=== PATIENT | female | born 1990 | race Caucasian/White ===

== ENCOUNTER 2016-09-25 10:35 | Emergency (ER) | payer BC, OTHER ==
[~2016-09-25] VITALS: Ht 160 cm; Wt 65.0 kg
[2016-09-25 10:38] VITALS: Ht 160 cm; Wt 65.0 kg
[2016-09-25] MEDS ORDERED: FAMOTIDINE 20 MG TAB PO STA (13:03)
[2016-09-25 13:30] LABS: URINE BLOOD (Dip) POC 3+ (NEGATIVE)
[2016-09-25] MEDS ORDERED: LIDOCAINE/MYLANTA 40 ML BTL PO ONE (13:30)
--- NOTE | 2016-09-25 14:03 | RADRPT ---
PROCEDURE: US Abdomen. CLINICAL INDICATION: abdominal pain TECHNIQUE: Multiple real-time images were acquired of the patient's right upper quadrant abdomen a nd retroperitoneum utilizing a high resolution transducer. COMPARISON: None FINDINGS: The liver demonstrates normal echogenicity. The liver is normal in size and no focal solid lesions are seen. The liver measures 13.5 cm in length. The portal vein is patent with normal direction of f low. No intrahepatic biliary dilatation is seen. No gallstones are identified within the gallbladder. There is no pericholecystic fluid or gallbladd er wall thickening. The common bile duct measures 3 mm in maximal dimension. The visualized portions of the pancreas are unremarkable. The tail of the pancreas is not seen. No free fluid is identified. The right kidney is normal in size, and demonstrate normal echogenicity and cortical thickness. The right kidney measures 8.6 cm in long dimension. There is no evidence of hydronephrosis. There are no kidney stones. RPTAT: AA IMPRESSION: Unremarkable right upper quadrant abdominal ultrasound. .Ritchie Clark MD, Date Time Electronically viewed and signed by .Ritchie Clark MD, MD on 09/25/2016 14:02 .S/
--- NOTE | 2016-09-25 14:08 | ERD ---
ER Documentation Chief Complaint Date/Time DATE: 09/25/16 TIME: 14:04 Chief Complaint MID ABDOMINAL PAIN X 2 WEEKS WITH NAUSEA HPI This is a 26-year-old female presenting to the emergency department for mid epigastric abdominal pain with nausea 2 weeks. Patient states pain feels like a pressure and also reports acid reflux that has worsened. Patient reports pain is worse after eating and has had a decreased appetite because of it. Patient also reports a dry nonproductive cough. No wheezing or chest pain. No fevers or chills. Pain is nonradiating. No lower abdominal pain. No dysuria or hematuria. Patient states she has not tried any medications for this. Last menstrual period started yesterday. ROS All systems reviewed and are negative except as per history of present illness. Medications Home Meds Active Scripts Famotidine* (Pepcid*) 20 Mg Tablet, 20 MG PO QAM for 15 Days, #15 TAB Prov:SHAHEEN SALOMON Timi PRECIADO 09/25/16 Allergies Allergies: Coded Allergies: No Known Drug Allergy (Verified Allergy, Mild, 07/11/14) PMhx/Soc History of Surgery: No Anesthesia Reaction: No Hx Neurological Disorder: No Hx Respiratory Disorders: No Hx Cardiac Disorders: Yes (HYPERLIPIDS) Hx Psychiatric Problems: No Hx Miscellaneous Medical Probl: No Hx Alcohol Use: Yes (SOCIALLY) Hx Substance Use: No Hx Tobacco Use: No Smoking Status: Never smoker Physical Exam Vitals Vital Signs Date Time Temp Pulse Resp B/P Pulse Ox O2 Delivery O2 Flow Rate FiO2 09/25/16 10:38 98.4 110 18 129/69 99 Physical Exam Const: Alert, [id number]. . Head: Atraumatic Eyes: Normal Conjunctiva ENT: Normal External Ears, Nose and Mouth.no erythema or exudate posterior pharynx. TMs normal bilaterally. Neck: Full range of motion..~ No meningismus. Resp: Clear to auscultation bilaterally No wheezing, rhonchi or crackles Cardio: Regular rate and rhythm, no murmurs Abd: Soft, non tender, non distended. Normal bowel sounds Skin: No petechiae or rashes Back: No midline or flank tenderness Ext: No cyanosis, or edema Neur: Awake and alert Psych: Normal Mood and Affect Result Diagram: 09/25/16 1420 09/25/16 1420 Results 24 hrs Laboratory Tests Test 09/25/16 13:31 09/25/16 14:20 Bedside Urine Blood 3+ Bedside Urine Glucose (UA) Negative Bedside Urine Ketones (LAB) 3+ Bedside Urine Leukocyte Esterase (L Negative Bedside Urine Nitrite (LAB) Negative Bedside Urine Protein (LAB) 1+ Bedside Urine pH (LAB) 6.0 Alanine Aminotransferase (ALT/SGPT) 35IU/L Albumin 4.6g/dl Albumin/Globulin Ratio 1.43 Alkaline Phosphatase 103IU/L Anion Gap 19 Aspartate Amino Transf (AST/SGOT) 26IU/L Basophils # 0.110^3/ul Basophils % 0.5% Blood Urea Nitrogen 11mg/dl Calcium Level 9.3mg/dl Carbon Dioxide Level 22mmol/L Chloride Level 106mmol/L Creatinine 0.59mg/dl Direct Bilirubin 0.00mg/dl Eosinophils # 0.110^3/ul Eosinophils % 1.3% Globulin 3.20g/dl Glucose Level 107mg/dl Hematocrit 42.8% Hemoglobin 14.6g/dl Indirect Bilirubin 0.4mg/dl Lymphocytes # 1.810^3/ul Lymphocytes % 18.3% Mean Corpuscular Hemoglobin 30.8pg Mean Corpuscular Hemoglobin Concent 34.2g/dl Mean Corpuscular Volume 90.1fl Mean Platelet Volume 8.8fl Monocytes # 0.410^3/ul Monocytes % 4.6% Neutrophils # 7.410^3/ul Neutrophils % 75.3% Nucleated Red Blood Cells # 0.010^3/ul Nucleated Red Blood Cells % 0.0/100WBC Platelet Count 67937^3/UL Potassium Level 3.2mmol/L Red Blood Count 4.7510^6/ul Red Cell Distribution Width 12.8% Sodium Level 144mmol/L Total Bilirubin 0.4mg/dl Total Protein 7.8g/dl White Blood Count 9.810^3/ul Current Medications Medications (Trade) Dose Ordered Sig/Celia Route PRN Reason Start Time Stop Time Status Last Admin Dose Admin Famotidine (Pepcid) 20 mg ONCE STAT PO 09/25/16 13:03 09/25/16 13:06 DC 09/25/16 13:42 Miscellaneous Medication (Gi Cocktail (2)) 40 ml ONCE ONCE PO 09/25/16 13:30 09/25/16 13:31 DC 09/25/16 13:42 Procedures/MDM ED COURSE: The patient was stable throughout ED course. I kept the patient and/or family informed of laboratory and diagnostic imaging results throughout the ED course. Pepcid and GI cocktail given Laboratory CBC is within normal limit CMP is within normal limits Urine dip 3+ blood, 3+ ketones and 1+ protein. Patient is on her menstrual period. Urine negative Imaging Gallbladder ultrasound Patient: STEPH CANNON : 1990 Age: 26 Sex: F [id number] DOS: 09/25/16 1303 Ordering MD: SHAHEEN SALOMON NP Location: [facility] Room/Bed: PROCEDURE: US Abdomen. CLINICAL INDICATION: abdominal pain TECHNIQUE: Multiple real-time images were acquired of the patient's right upper quadrant abdomen and retroperitoneum utilizing a high resolution transducer. COMPARISON: None FINDINGS: The liver demonstrates normal echogenicity. The liver is normal in size and no focal solid lesions are seen. The liver measures 13.5 cm in length. The portal vein is patent with normal direction of flow. No intrahepatic biliary dilatation is seen. No gallstones are identified within the gallbladder. There is no pericholecystic fluid or gallbladder wall thickening. The common bile duct measures 3 mm in maximal dimension. The visualized portions of the pancreas are unremarkable. The tail of the pancreas is not seen. No free fluid is identified. The right kidney is normal in size, and demonstrate normal echogenicity and cortical thickness. The right kidney measures 8.6 cm in long dimension. There is no evidence of hydronephrosis. There are no kidney stones. RPTAT: AA IMPRESSION: Unremarkable right upper quadrant abdominal ultrasound. MDM: 26-year-old female presents emergency department for mid epigastric abdominal pain with nausea 2 weeks. Patient given GI cocktail and Pepcid while in the ED. Labs are unremarkable. Urine is negative for infection. Gallbladder ultrasound reviewed by radiologist as unremarkable. Patient states nausea and pain have greatly improved. Patient now denies any nausea or pain. Denies chest pain, heart palpitations. No fevers or chills. Remains hemodynamically stable. patient is calm and comfortable throughout ED visit. Remains stable. Low suspicion for cholecystitis, choledocholithiasis, abdominal aortic aneurysm , and diverticulitis. Differential diagnosis includes but not limited to GERD, gastritis, peptic ulcer disease and cholelithiasis Patient is appropriate for outpatient management and will be given prescription for Pepcid instructed patient to follow up with primary care provider in the next 24-48 hours for reassessment and additional management.. Return to ED for any high fever, chest pain, difficulty breathing, shortness breath, wheezing, vomiting, diarrhea, abdominal pain or any new or worsening symptoms. Patient verbalizes understanding. All questions answered at discharge. Departure Diagnosis: Primary Impression: Abdominal pain Abdominal location: epigastric Qualified Code: R10.13 - Epigastric pain Condition: Stable SHAHEEN SALOMON NP Sep 25, 2016 14:08
[2016-09-25 14:40] LABS: BASOPHIL # 0.1 10^3/ul (0.0-0.1); BASOPHILS % 0.5 % (0.0-2.0); EOSINOPHILS # 0.1 10^3/ul (0.0-0.5); EOSINOPHILS % 1.3 % (0.0-7.0); HEMATOCRIT 42.8 % (37.0-47.0); HEMOGLOBIN 14.6 g/dl (12.0-16.0); LYMPHOCYTES # 1.8 10^3/ul (0.8-2.9); LYMPHOCYTES % 18.3 % (15.0-51.0); MEAN CORPUSCULAR HEMOGLOBIN 30.8 pg (29.0-33.0); MEAN CORPUSCULAR HGB CONC 34.2 g/dl (32.0-37.0); MEAN CORPUSCULAR VOLUME 90.1 fl (82.0-101.0); MEAN PLATELET VOLUME 8.8 fl (7.4-10.4); MONOCYTE # 0.4 10^3/ul (0.3-0.9); MONOCYTES % 4.6 % (0.0-11.0); NEUTROPHIL # 7.4 10^3/ul (1.6-7.5); NEUTROPHILS % 75.3 % (39.0-77.0); PLATELET COUNT 317 10^3/UL (140-440); RED BLOOD COUNT 4.75 10^6/ul (4.20-5.40); RED CELL DISTRIBUTION WIDTH 12.8 % (11.5-14.5); UNCORRECTED WBC 9.8 10^3/ul (4.8-10.8); WHITE BLOOD COUNT 9.8 10^3/ul (4.8-10.8)
[2016-09-25 14:49] LABS: ALBUMIN 4.6 g/dl (3.3-4.9); POTASSIUM 3.2 mmol/L (3.5-5.1)
[2016-09-25] MEDS ORDERED: FAMO-18 PO (14:49)
[2016-09-25 14:51] LABS: BILIRUBIN,INDIRECT 0.4 mg/dl (0-1.1); BILIRUBIN,TOTAL 0.4 mg/dl (0.2-1.3); CREATININE 0.59 mg/dl (0.44-1.00)
[2016-09-25 14:52] LABS: ALBUMIN/GLOBULIN RATIO 1.43; CALCIUM 9.3 mg/dl (8.4-10.2); TOTAL PROTEIN 7.8 g/dl (6.1-8.1)
[2016-09-25 15:02] LABS: CONDITION 1
[2016-09-25 15:13] VITALS: BP 122/77; PULSE 86; RESP 20; TEMP 98.3
== END 2016-09-25 15:19 | disposition home or self-care (01) ==
LOC: FTE 10:35
DX: R10.13 Epigastric pain (principal)
CPT/HCPCS: 36415; 76705; 80053; 81003; 85025; 99284; Z7610

== ENCOUNTER 2016-10-24 06:25 | Emergency (ER) | payer BC ==
[~2016-10-24] VITALS: Wt 58.0 kg
[~2016-10-24 06:25] MED LIST: FAMO-18 PO
[2016-10-24 07:12] VITALS: BP 118/97; PULSE 130; RESP 17; TEMP 98.1
[2016-10-24] MEDS ORDERED: LORA-441 PO (07:24)
[2016-10-24] MEDS ORDERED: DOCU-144 PO (07:24)
[2016-10-24] MEDS ORDERED: FAMO-18 PO (07:24)
--- NOTE | 2016-10-24 07:29 | ERD ---
ER Documentation Chief Complaint Date/Time DATE: 10/24/16 TIME: 0715 Chief Complaint gen abd pain with constipation no bleeding. nausea and vomitng HPI 26 -year-old female presents to the emergency department complaining of multiple complaints. Beginning in August, patient had URI symptoms which then caused a "lump in her throat." Patient states that this made her anxious. She was then seen in our emergency department in September with ongoing symptoms and now included abdominal pain in the epigastric area. She had a diagnostic workup including blood tests and an ultrasound which demonstrated no acute pathology. She then was followed with an upper GI which demonstrated reflux disease. Patient took antacids but then stopped them stating that she was feeling better. She returns the emergency department today stating that she is constipated with a diffuse, nonspecific, visceral type abdominal discomfort that she rates as 8 out of 10. She states it's related to ongoing anxiety that she has she denies significant depression or suicidal thoughts. She states that she is having bowel movements but the constipation is making it so that her bowel movements her and this is causing her more anxiety and more pain in her abdomen. Patient reports no fevers , chills, vomiting. ROS All systems reviewed and are negative except as per history of present illness. Medications Home Meds Active Scripts Docusate Sodium* (Colace*) 100 Mg Capsule, 100 MG PO BID, #30 CAP Prov:ANDREZ SOSA 10/24/16 Lorazepam* (Ativan*) 0.5 Mg Tablet, 0.5 MG PO Q8H Y for ANXIETY, #10 TAB Prov:ANDREZ SOSA 10/24/16 Famotidine* (Pepcid*) 20 Mg Tablet, 20 MG PO BID for 30 Days, #60 TAB Prov:MICKY SOSASON 10/24/16 Famotidine* (Pepcid*) 20 Mg Tablet, 20 MG PO QAM for 15 Days, #15 TAB Prov:SHAHEEN SALOMON NP 09/25/16 Allergies Allergies: Coded Allergies: No Known Drug Allergy (Verified Allergy, Mild, 07/11/14) PMhx/Soc History of Surgery: No Anesthesia Reaction: No Hx Neurological Disorder: No Hx Respiratory Disorders: No Hx Cardiac Disorders: Yes (HYPERLIPIDS) Hx Psychiatric Problems: No Hx Miscellaneous Medical Probl: No Hx Alcohol Use: No Hx Substance Use: No Hx Tobacco Use: No Smoking Status: Never smoker FmHx Noncontributory for chief complaint Physical Exam Vitals Vital Signs Date Time Temp Pulse Resp B/P Pulse Ox O2 Delivery O2 Flow Rate FiO2 10/24/16 07:12 98.1 130 17 118/97 100 Room Air 10/24/16 06:28 98.0 146 20 121/74 98 Physical Exam GENERAL: The patient is well developed and appropriate for usual state of health in no apparent distress HEENT: Pupils equal, round, and reactive to light. EOMI. There is no scleral icterus. NECK: C-spine is soft and supple, there is no meningismus. There is no cervical lymphadenopathy. LUNGS: Clear to auscultation bilaterally. There are no rales, wheezes or rhonchi. HEART: Regular rate and rhythm, no murmurs, clicks, rubs or gallops. ABDOMEN: Soft, non-tender, non-distended. There are bowel sounds in all four quadrants. No rebound or guarding. EXTREMITIES: There is no peripheral cyanosis or edema. No focal swelling or erythema. NEURO: The patient moves all four extremities with 5/5 strength. Cranial nerves II - XII are intact. Normal gait. Alert and oriented SKIN: There is no apparent rash or petechiae. HEME/LYMPHATIC: There is no evidence of excessive bruising or lymphedema. PSYCHIATRIC: He is anxious and depressed. She is occasionally tearful. She has normal mental status with no suicidal or homicidal thoughts Procedures/MDM Patient was taken to a room, seen and examined. Old records were reviewed Medical decision making: This is an otherwise healthy 26-year-old female who presents to the emergency department with a number of nonspecific symptoms. At this time, patient's previous evaluations and today's evaluations demonstrate no signs of significant acute intra-abdominal pathology. She has no signs of cholecystitis, appendicitis or other high risk obstruction or concerns. Patient' s pain is obvious he well-controlled. In regards to the patient's anxiety, this is clearly an ongoing issue and I suspect is most of the cause of her symptoms. However, patient does not appear to be depressed or suicidal and does not seem to be dangerous to herself or others. She's been referred for outpatient care with symptomatic management. Departure Diagnosis: Primary Impression: Anxiety Ruled Out: Bleeding external hemorrhoids Condition: Good Patient Instructions: Anxiety Reaction, Constipation (Adult), Gerd (Adult) Referrals: AHSAN ANNA (PCP) ANDREZ SOSA Oct 24, 2016 07:29
== END 2016-10-24 07:30 | disposition home or self-care (01) ==
LOC: E/R 06:25
DX: F41.9 Anxiety disorder, unspecified (principal); R40.2142 Coma scale, eyes open, spontaneous, at arrival to emergency department; R40.2362 Coma scale, best motor response, obeys commands, at arrival to emergency department; R40.2252 Coma scale, best verbal response, oriented, at arrival to emergency department
CPT/HCPCS: 99283; Z7610

== ENCOUNTER 2017-07-05 13:33 | Day surgery (SDC) | payer BC ==
[~2017-07-05] VITALS: Ht 152.4 cm; Wt 52.2 kg
[~2017-07-05 13:33] MED LIST changes: +DOCU-144 PO; -FAMO-18 PO; +FAMO-96 PO; +LORA-441 PO
[2017-07-05 14:42] VITALS: Ht 152.4 cm; Wt 52.2 kg
[2017-07-05 15:39] VITALS: BP 113/67; PULSE 115; RESP 25
[2017-07-05] MEDS ORDERED: FENTAnyl 50 MCG/ML VIAL ONE (16:22)
[2017-07-05] MEDS ORDERED: PROPOFOL 20 ML ONE (16:22)
[2017-07-05] MEDS ORDERED: MIDAZOLAM 1 MG/ML 2 ML INJ ONE (16:23)
--- NOTE | 2017-07-05 16:34 | OPPN ---
Date/Time of Note Date/Time of Note DATE: 07/05/17 TIME: 16:31 Proc Note GI Procedure Date 07/05/17 Indication: other (Dysphagia) Pre-procedure Diagnosis Dysphagia Post-procedure Diagnosis Impression: Distal erosive esophagitis. Small hiatal hernia. Rule out eosinophilic esophagitis. Biopsies obtained Moderate gastritis. Rule out H. pylori infection. Biopsies obtained Plan: Omeprazole 40 mg daily Review pathology as soon as available Follow-up as previously scheduled . Procedure Performed: Endoscopy (With biopsies) Surgeon TARA WEST MD See signature line Supervisor Asbestos Removal none Anesthesia Type: MAC Anesthesiologist: CHA BOB MD Tourniquet Time none EBL none Transfusion required none Biopsy 1: Gastric body and antrum/rule out H. pylori infection Biopsy 2: Midesophagus/rule out eosinophilic esophagitis Grafts/Implants none Tubes/Drains none Complication(s) none Disposition: home Procedure Description After informed consent, with the patient/relatives understanding the procedure, its indications, potential risks and complications, including but not limited to : allergic reaction, bleeding, perforation or infection, and after all pertinent questions were answered to the patients satisfaction, the patient/ relatives signed witnessed informed consent. Following this, premedication was administered slowly IV push under careful cardiovascular and respiratory monitoring with pulse oximetry, automatic blood pressure, and monitoring specialist. Once the sedative effect was achieved the patient was place in the left lateral decubitus, the panendoscope was introduced and advanced under visual control. Careful examination of the upper gastrointestinal tract, both on insertion as well as withdrawal of the instrument disclosing the following findings: ESOPHAGUS: the mucosa of the entire esophagus was carefully examined and showed the following findings: There is erythema edema and linear erosions in the distal esophagus. There is also a multi-ring appearance of the body of the esophagus raising the possibility of eosinophilic esophagitis. Biopsies were obtained. Otherwise the mucosa appears within normal limits. There is no evidence of varices, neoplasm, or stricture. Small hiatal Hernia identified. STOMACH: Upon entrance to the stomach air was insufflated, the gastric heller distended normally. The mucosa of the fundus, body and antrum of the stomach was carefully examined both head-on and on retroflexion, and showed the following findings: There is erythema and edema of the mucosa of the body and antrum the stomach. Biopsies were obtained to rule out H. pylori infection. Otherwise the mucosa appears within normal limits with no abnormalities. There is no evidence of ulcers or neoplasm. PYLORUS: The pylorus was carefully examined and showed the following findings: the pylorus appears patent and within normal limits, with no evidence of gastric outlet obstruction. DUODENUM: The duodenal mucosa was carefully examined in the duodenal bulb as well as the second portion of the duodenum and showed the following findings: the mucosa appears unremarkable with no evidence of duodenitis, ulcer or neoplasm. Copies To: CC: TRAA WEST MD, MORDO MD Jul 05, 2017 16:34
[2017-07-05 17:23] VITALS: BP 95/61; RESP 14
== END 2017-07-05 17:01 | disposition home or self-care (01) ==
LOC: GIL 13:33
PROVIDERS: ATTEND Internal Medicine Gastroenterology
DX: R13.10 Dysphagia, unspecified (principal); K20.8 Other esophagitis; K44.9 Diaphragmatic hernia without obstruction or gangrene
CPT/HCPCS: 43239; 84703; 88305; 88312; 88313; J2250; J3010; Z7610

== ENCOUNTER 2017-09-04 07:34 | Emergency (ER) | END 2017-09-04 08:57 | disposition home or self-care (01) ==

== ENCOUNTER 2017-09-27 05:02 | Emergency (ER) | END 2017-09-27 08:38 | disposition home or self-care (01) ==